=== PATIENT | male | born 1970 | race Caucasian/White ===

== ENCOUNTER 2024-09-11 13:52 | Day surgery (SDC) | payer MEDICARE ==
[2024-09-11] MEDS ORDERED: dexAMETHasone sodium phosphate IJ ONE (13:53)
[2024-09-11] MEDS ORDERED: LIDOCAINE HCL 1% AMPUL 5 ML IJ ONE (13:53)
[2024-09-11] MEDS ORDERED: Sodium Chloride 0.9(Preservative Free) 10 ML IJ ONE (13:53)
[2024-09-11] MEDS ORDERED: Sodium Chloride 0.9% 250 ML 250 ML IV ONE (14:10)
--- NOTE | 2024-09-11 16:53 | XRAY ---
43 seconds of fluoroscopy was used in surgery for a cervical SHADIA.
--- NOTE | 2024-09-11 16:56 | XRAY ---
Indication: Cervical SHADIA. Intraoperative fluoroscopy provided for 43 seconds. 3 digital spot image submitted for interpretation demonstrates needle tip projecting posterior to cervical thoracic junction. Small amount of contrast injected for needle tip placement. Correlate with intraoperative findings/report.
== END 2024-09-11 16:00 | disposition home or self-care (01) ==
LOC: SDC-PAIN 13:52
PROVIDERS: ATTEND Psychiatry & Neurology Pain Medicine
DX: M54.12 Radiculopathy, cervical region (principal)
CPT/HCPCS: 62321; 72040; 77003; J1100; Q9966